=== PATIENT | male | born 1950 | race Caucasian/White ===

== ENCOUNTER 2017-02-16 18:17 | Emergency (ER) | payer OTHER ==
[~2017-02-16 18:17] MED LIST: METFORMIN HCL1000 MG PO; VITAMIN C 500500 MG PO
[2017-02-16 22:55] LABS: HEMOGLOBIN 12.7 gm/dl (14.0-17.5); RED BLOOD COUNT 4.16 M/UL (4.20-5.50); WHITE BLOOD COUNT 10.1 K/UL (4.5-11.0)
[2017-02-16 23:15] LABS: BUN/CREATININE RATIO 19 (0-10)
== END 2017-02-16 23:56 | disposition home or self-care (01) ==
LOC: ER1 18:17
PROVIDERS: Emergency Medicine
DX: H81.13 Benign paroxysmal vertigo, bilateral (principal); E11.9 Type 2 diabetes mellitus without complications; Z79.84 Long term (current) use of oral hypoglycemic drugs
CPT/HCPCS: 36415; 70450; 80048; 85025; 93005; 96361; 96374; 99284; J2405

== ENCOUNTER → 2020-09-24 | Outpatient (CLI) | payer MEDICARE, OTHER ==
[~2020-09-24] MED LIST changes: +ASPIRIN EC81 MG PO; +CRESTOR 10 MG T10 MG PO; +DOME-PASTE BANDA1 EA TOP; +GABAPENTIN300 MG PO; +GABAPENTIN400 MG PO; +HUMALOG 10100 UNITS/ SC; +HYDROCODON-ACE1 EAC2 PO; +HYSEPT473 ML EXT; +HYSEPT473 ML TOP; +INVANZ 1 GM VIAL1 GM IV; +JANUVIA 100 MG100 MG PO; +LEVOFLOXACIN500 MG PO; +LEVOFLOXACIN750 MG PO; +LOPRESSOR 25 MG25 MG PO; +MAGIC MOUTHWASH PO; +MYCOSTATIN100000 UTS PO; +NITROGLYCERIN0.4 MG SL; +NITROSTAT0.4 MG SL; +NORVASC5 MG PO; +NOVOLIN 70100 UNIT/2 SQ; +PERCOCET 5/325 T1 EA PO; +POVIDONE-IOD28.35 GM TOP; +PRILOSEC OTC20 MG PO; +VIBRAMYCIN100 MG PO; +VITAMIN D21250 MCG PO; +ZYVOX600 MG PO
[2020-09-24 17:40] LABS: HEMOGLOBIN 8.9 gm/dl (14.0-17.5); RED BLOOD COUNT 3.04 M/UL (4.20-5.50); WHITE BLOOD COUNT 7.6 K/UL (4.5-11.0)
[2020-09-24 19:59] LABS: BUN/CREATININE RATIO 28 (0-10)
== END ==
LOC: VNA 17:15
PROVIDERS: Internal Medicine
DX: E11.621 Type 2 diabetes mellitus with foot ulcer (principal); L97.509 Non-pressure chronic ulcer of other part of unspecified foot with unspecified severity; E78.5 Hyperlipidemia, unspecified; D51.9 Vitamin B12 deficiency anemia, unspecified; D52.9 Folate deficiency anemia, unspecified; R94.6 Abnormal results of thyroid function studies; S91.301A Unspecified open wound, right foot, initial encounter; E55.9 Vitamin D deficiency, unspecified; R68.89 Other general symptoms and signs; X58.XXXA Exposure to other specified factors, initial encounter
CPT/HCPCS: 80053; 80061; 82607; 82746; 84443; 85025; 87070; 87077; 87186; 87205

== ENCOUNTER 2020-09-28 01:27 | Emergency (ER) | payer MEDICARE, OTHER ==
[~2020-09-28 01:27] MED LIST changes: -ASPIRIN EC81 MG PO; -CRESTOR 10 MG T10 MG PO; -DOME-PASTE BANDA1 EA TOP; -GABAPENTIN300 MG PO; -GABAPENTIN400 MG PO; -HUMALOG 10100 UNITS/ SC; -HYSEPT473 ML TOP; -LEVOFLOXACIN500 MG PO; -LEVOFLOXACIN750 MG PO; -LOPRESSOR 25 MG25 MG PO; -NITROSTAT0.4 MG SL; -NORVASC5 MG PO; -POVIDONE-IOD28.35 GM TOP; -VITAMIN D21250 MCG PO; -ZYVOX600 MG PO
[2020-09-28 04:21] LABS: HEMOGLOBIN 9.6 gm/dl (14.0-17.5); RED BLOOD COUNT 3.3 M/UL (4.20-5.50); WHITE BLOOD COUNT 8.5 K/UL (4.5-11.0)
[2020-09-28] MEDS ORDERED: PERCOCET 5/325 T1 EA PO (06:19)
== END 2020-09-28 06:45 | disposition home or self-care (01) ==
LOC: ER1 01:27
PROVIDERS: Family Medicine
DX: E11.621 Type 2 diabetes mellitus with foot ulcer (principal); K21.9 Gastro-esophageal reflux disease without esophagitis; F17.200 Nicotine dependence, unspecified, uncomplicated; Z79.4 Long term (current) use of insulin; Z20.822 Contact with and (suspected) exposure to COVID-19
CPT/HCPCS: 71045; 73630; 73660; 80053; 85025; 85652; 86140; 87070; 87077; 87186; 87205; 99284; U0002

== ENCOUNTER 2020-10-03 18:55 | Inpatient (IN) | payer OTHER ==
[~2020-10-03] VITALS: Ht 177.8 cm; Wt 90.3 kg
[2020-10-03 22:41] LABS: HEMOGLOBIN 8.7 gm/dl (14.0-17.5); RED BLOOD COUNT 2.97 M/UL (4.20-5.50); WHITE BLOOD COUNT 7.8 K/UL (4.5-11.0)
[2020-10-03 22:55] LABS: BUN/CREATININE RATIO 19 (0-10)
[2020-10-05 04:43] LABS: HEMOGLOBIN 8.7 gm/dl (14.0-17.5)
[2020-10-05 04:48] LABS: WHITE BLOOD COUNT 10.1 K/UL (4.5-11.0)
[2020-10-05 05:55] LABS: BUN/CREATININE RATIO 27 (0-10)
[2020-10-06 05:18] LABS: HEMOGLOBIN 8.3 gm/dl (14.0-17.5); RED BLOOD COUNT 2.9 M/UL (4.20-5.50); WHITE BLOOD COUNT 9.5 K/UL (4.5-11.0)
[2020-10-06 05:55] LABS: BUN/CREATININE RATIO 19 (0-10)
[2020-10-07 04:51] LABS: HEMOGLOBIN 8.2 gm/dl (14.0-17.5); RED BLOOD COUNT 2.85 M/UL (4.20-5.50); WHITE BLOOD COUNT 9.4 K/UL (4.5-11.0)
[2020-10-07 05:08] LABS: BUN/CREATININE RATIO 21 (0-10)
[2020-10-08 04:08] LABS: HEMOGLOBIN 8.7 gm/dl (14.0-17.5); RED BLOOD COUNT 3.03 M/UL (4.20-5.50); WHITE BLOOD COUNT 9.8 K/UL (4.5-11.0)
[2020-10-08 04:32] LABS: BUN/CREATININE RATIO 19 (0-10)
[2020-10-08] MEDS ORDERED: ZYVOX600 MG PO (13:52)
[2020-10-08] MEDS ORDERED: LEVOFLOXACIN500 MG PO (13:52)
== END 2020-10-08 18:02 | disposition home or self-care (01) | DRG 41 ==
LOC: ER1 18:55 → CDU 10-04 01:24 → MED SURG 4 10-04 01:24
PROVIDERS: Internal Medicine; Physician Assistant; ADMIT Family Medicine
PROC: 0JBQ0ZZ Excision of Right Foot Subcutaneous Tissue and Fascia, Open Approach (ICD-10-PCS; principal; 2020-10-07)
PROC: 0J9Q0ZZ Drainage of Right Foot Subcutaneous Tissue and Fascia, Open Approach (ICD-10-PCS; principal; 2020-10-07)
DX: E11.42 Type 2 diabetes mellitus with diabetic polyneuropathy (principal); A52.16 Charcot's arthropathy (tabetic); L02.611 Cutaneous abscess of right foot; L03.115 Cellulitis of right lower limb; M21.6X1 Other acquired deformities of right foot; B95.62 Methicillin resistant Staphylococcus aureus infection as the cause of diseases classified elsewhere; B96.5 Pseudomonas (aeruginosa) (mallei) (pseudomallei) as the cause of diseases classified elsewhere; F15.10 Other stimulant abuse, uncomplicated; D64.9 Anemia, unspecified; Z79.899 Other long term (current) drug therapy; K21.9 Gastro-esophageal reflux disease without esophagitis; B35.1 Tinea unguium; Z20.822 Contact with and (suspected) exposure to COVID-19
CPT/HCPCS: 36415; 73630; 73718; 80053; 80202; 82043; 82962; 83036; 83605; 85025; 85027; 85610; 85652; 86140; 87040; 87070; 87077; 87186; 87205; 96365; 96366; 96367; 96368; 96372; 96375; 96376; 99284; J1650; J2270; J2543; J3370; J7070; U0002

== ENCOUNTER 2020-11-01 22:11 | Observation (INO) | payer OTHER ==
[~2020-11-01] VITALS: Ht 177.8 cm; Wt 95.3 kg
[~2020-11-01 22:11] MED LIST changes: +LEVOFLOXACIN500 MG PO; +ZYVOX600 MG PO
[2020-11-01 22:45] LABS: HEMOGLOBIN 8.4 gm/dl (14.0-17.5); RED BLOOD COUNT 2.86 M/UL (4.20-5.50)
[2020-11-02 06:34] LABS: HEMOGLOBIN 7.5 gm/dl (14.0-17.5); WHITE BLOOD COUNT 8.8 K/UL (4.5-11.0)
[2020-11-02 06:37] LABS: RED BLOOD COUNT 2.57 M/UL (4.20-5.50)
[2020-11-02 06:56] LABS: BUN/CREATININE RATIO 29 (0-10)
== END 2020-11-02 09:55 | disposition home or self-care (01) ==
LOC: ER1 22:11 → CDU 22:46 → CCU 22:46
PROVIDERS: Emergency Medicine; ADMIT Surgery
DX: T59.811A Toxic effect of smoke, accidental (unintentional), initial encounter (principal); E11.9 Type 2 diabetes mellitus without complications; Z20.822 Contact with and (suspected) exposure to COVID-19; Z98.890 Other specified postprocedural states; Z79.4 Long term (current) use of insulin; Z79.899 Other long term (current) drug therapy
CPT/HCPCS: 36415; 36600; 71045; 80048; 80053; 82600; 82805; 85007; 85025; 85027; 93005; 99285; G0378; U0002

== ENCOUNTER 2020-11-29 23:56 | Inpatient (IN) | payer OTHER ==
[~2020-11-29] VITALS: Ht 177.8 cm; Wt 95.0 kg
[2020-11-30 00:58] LABS: HEMOGLOBIN 8.4 gm/dl (14.0-17.5); RED BLOOD COUNT 2.9 M/UL (4.20-5.50); WHITE BLOOD COUNT 14.1 K/UL (4.5-11.0)
[2020-11-30 01:15] LABS: BUN/CREATININE RATIO 29 (0-10)
[2020-11-30] MEDS ORDERED: VITAMIN D21250 MCG PO (09:17)
[2020-11-30] MEDS ORDERED: GABAPENTIN300 MG PO (09:21)
[2020-12-01 04:34] LABS: HEMOGLOBIN 7.6 gm/dl (14.0-17.5); RED BLOOD COUNT 2.61 M/UL (4.20-5.50); WHITE BLOOD COUNT 12.5 K/UL (4.5-11.0)
[2020-12-01 05:02] LABS: BUN/CREATININE RATIO 20 (0-10)
[2020-12-01] MEDS ORDERED: NITROSTAT0.4 MG SL (19:52)
[2020-12-02 05:30] LABS: HEMOGLOBIN 7.8 gm/dl (14.0-17.5); RED BLOOD COUNT 2.7 M/UL (4.20-5.50); WHITE BLOOD COUNT 11.7 K/UL (4.5-11.0)
[2020-12-02 05:55] LABS: BUN/CREATININE RATIO 17 (0-10)
[2020-12-03 04:08] LABS: HEMOGLOBIN 8.1 gm/dl (14.0-17.5); RED BLOOD COUNT 2.83 M/UL (4.20-5.50); WHITE BLOOD COUNT 10.8 K/UL (4.5-11.0)
[2020-12-03 04:29] LABS: BUN/CREATININE RATIO 16 (0-10)
[2020-12-04 05:26] LABS: HEMOGLOBIN 8.2 gm/dl (14.0-17.5); RED BLOOD COUNT 2.86 M/UL (4.20-5.50); WHITE BLOOD COUNT 11.9 K/UL (4.5-11.0)
[2020-12-04 05:48] LABS: BUN/CREATININE RATIO 17 (0-10)
[2020-12-05 09:20] LABS: HEMOGLOBIN 7.4 gm/dl (14.0-17.5); RED BLOOD COUNT 2.69 M/UL (4.20-5.50)
[2020-12-05 09:52] LABS: BUN/CREATININE RATIO 18 (0-10)
[2020-12-06 03:41] LABS: RED BLOOD COUNT 2.87 M/UL (4.20-5.50); WHITE BLOOD COUNT 10.1 K/UL (4.5-11.0)
[2020-12-06 04:15] LABS: BUN/CREATININE RATIO 17 (0-10)
[2020-12-07 04:21] LABS: HEMOGLOBIN 8.5 gm/dl (14.0-17.5); RED BLOOD COUNT 3.03 M/UL (4.20-5.50); WHITE BLOOD COUNT 9.7 K/UL (4.5-11.0)
[2020-12-07 04:45] LABS: BUN/CREATININE RATIO 20 (0-10)
[2020-12-08 04:44] LABS: HEMOGLOBIN 8.5 gm/dl (14.0-17.5); RED BLOOD COUNT 3.03 M/UL (4.20-5.50); WHITE BLOOD COUNT 10.6 K/UL (4.5-11.0)
[2020-12-08 05:02] LABS: BUN/CREATININE RATIO 21 (0-10)
--- NOTE | 2020-12-09 16:39 | NUR ---
AT 1605 ON 12/09/20, BILAT FEET DRESSINGS CHANGED ORDERED.
[2020-12-10 04:24] LABS: BUN/CREATININE RATIO 26 (0-10)
--- NOTE | 2020-12-10 18:01 | NUR ---
DRESSINGS CHANGED TO BILAT FEET ORDERED AT 1730 ON 12/10/20
--- NOTE | 2020-12-11 17:15 | NUR ---
AT 1650 ON 12/11/20, DRESSING CHANGES TO BILAT FEET CHANGED PER ORDERS
--- NOTE | 2020-12-12 16:55 | NUR ---
BILAT FEET DRESSINGS CHANGED AT 1645 ON 12/12/20 ORDERED.
[2020-12-14 03:36] LABS: BUN/CREATININE RATIO 23 (0-10)
[2020-12-17 05:32] LABS: RED BLOOD COUNT 3.21 M/UL (4.20-5.50); WHITE BLOOD COUNT 9.2 K/UL (4.5-11.0)
[2020-12-17 05:50] LABS: BUN/CREATININE RATIO 25 (0-10)
[2020-12-18 04:46] LABS: HEMOGLOBIN 9.1 gm/dl (14.0-17.5); RED BLOOD COUNT 3.19 M/UL (4.20-5.50); WHITE BLOOD COUNT 8.1 K/UL (4.5-11.0)
[2020-12-18 05:10] LABS: BUN/CREATININE RATIO 26 (0-10)
--- NOTE | 2020-12-18 06:20 | NUR ---
Patient had me take off his unna boot, kerlix, pily wrap. States "too tight" and foot feels better without it. Patient absolutely refusing to allow me to place new unna boot, kerlix, pily wrap to left foot.
[2020-12-18] MEDS ORDERED: ASPIRIN EC81 MG PO (11:38)
[2020-12-18] MEDS ORDERED: POVIDONE-IOD28.35 GM TOP (11:38)
[2020-12-18] MEDS ORDERED: CRESTOR 10 MG T10 MG PO (11:38)
[2020-12-18] MEDS ORDERED: HYSEPT473 ML TOP (11:38)
[2020-12-18] MEDS ORDERED: HUMALOG 10100 UNITS/ SC (11:38)
[2020-12-18] MEDS ORDERED: DOME-PASTE BANDA1 EA TOP (11:38)
[2020-12-18] MEDS ORDERED: LOPRESSOR 25 MG25 MG PO (11:38)
[2020-12-18] MEDS ORDERED: HYDROCODON-ACE1 EAC2 PO (11:38)
== END 2020-12-18 17:22 | DRG 616 ==
LOC: ER1 23:56 → MED SURG 4 11-30 01:55 → CDU 11-30 01:55 → MED SURG 4 11-30 02:55
PROVIDERS: Emergency Medicine; Family Medicine; Internal Medicine; Physician Assistant; ADMIT Internal Medicine
PROC: 0Y6S0Z0 Detachment at Left 2nd Toe, Complete, Open Approach (ICD-10-PCS; 2020-12-03)
PROC: 0JBQ0ZZ Excision of Right Foot Subcutaneous Tissue and Fascia, Open Approach (ICD-10-PCS; 2020-12-03)
PROC: B24BZZ4 Ultrasonography of Heart with Aorta, Transesophageal (ICD-10-PCS; 2020-12-03)
PROC: 02HV33Z Insertion of Infusion Device into Superior Vena Cava, Percutaneous Approach (ICD-10-PCS; principal; 2020-12-10)
DX: E11.69 Type 2 diabetes mellitus with other specified complication (principal); I21.A1 Myocardial infarction type 2; E43 Unspecified severe protein-calorie malnutrition; M86.8X7 Other osteomyelitis, ankle and foot; E11.610 Type 2 diabetes mellitus with diabetic neuropathic arthropathy; F10.10 Alcohol abuse, uncomplicated; Z20.822 Contact with and (suspected) exposure to COVID-19; E11.40 Type 2 diabetes mellitus with diabetic neuropathy, unspecified; D63.8 Anemia in other chronic diseases classified elsewhere; I10 Essential (primary) hypertension; E78.5 Hyperlipidemia, unspecified; E11.649 Type 2 diabetes mellitus with hypoglycemia without coma; F32.9 Major depressive disorder, single episode, unspecified; E66.9 Obesity, unspecified; L03.032 Cellulitis of left toe; R53.81 Other malaise; B95.62 Methicillin resistant Staphylococcus aureus infection as the cause of diseases classified elsewhere; Z79.4 Long term (current) use of insulin; Z91.14 Patient's other noncompliance with medication regimen; Z59.0 Homelessness; Z89.431 Acquired absence of right foot; Z82.49 Family history of ischemic heart disease and other diseases of the circulatory system; Z80.9 Family history of malignant neoplasm, unspecified; Z83.3 Family history of diabetes mellitus; Z98.42 Cataract extraction status, left eye; Z98.41 Cataract extraction status, right eye; Z68.30 Body mass index [BMI] 30.0-30.9, adult
CPT/HCPCS: ECHO; 36415; 71045; 73620; 73718; 80048; 80053; 80061; 80202; 80307; 82009; 82550; 82553; 82607; 82746; 82962; 83036; 83605; 83690; 83735; 83874; 83880; 84484; 85025; 85027; 85652; 86140; 87040; 87070; 87077; 87081; 87186; 87205; 93005; 93306; 93925; 93970; 96365; 96368; 97110; 97116; 97116-GP-CQ; 97162; 97530-GP-CQ; 99285; A6212; J0692; J1650; J2270; J2543; J3370; J3475; J7030; J7070; J7120; Q4133; U0002

== ENCOUNTER → 2021-01-20 | Outpatient (CLI) | payer OTHER ==
[~2021-01-20] MED LIST changes: +ASPIRIN EC81 MG PO; +CRESTOR 10 MG T10 MG PO; +DOME-PASTE BANDA1 EA TOP; +GABAPENTIN300 MG PO; +GABAPENTIN400 MG PO; +HUMALOG 10100 UNITS/ SC; +HYSEPT473 ML TOP; +LEVOFLOXACIN750 MG PO; +LOPRESSOR 25 MG25 MG PO; +NITROSTAT0.4 MG SL; +NORVASC5 MG PO; +POVIDONE-IOD28.35 GM TOP; +VITAMIN D21250 MCG PO
== END ==
LOC: LBRF 11:57
DX: S91.301A Unspecified open wound, right foot, initial encounter (principal)
CPT/HCPCS: 87070; 87077; 87186; 87205

== ENCOUNTER 2021-02-01 10:02 | Inpatient (IN) | payer OTHER ==
[~2021-02-01] VITALS: Ht 177.8 cm; Wt 91.2 kg
[~2021-02-01 10:02] MED LIST changes: -GABAPENTIN400 MG PO; -LEVOFLOXACIN750 MG PO; -NORVASC5 MG PO
[2021-02-01 10:37] LABS: HEMOGLOBIN 11.3 gm/dl (14.0-17.5); RED BLOOD COUNT 4.06 M/UL (4.20-5.50)
[2021-02-01] MEDS ORDERED: GABAPENTIN400 MG PO (14:37)
[2021-02-01] MEDS ORDERED: LEVOFLOXACIN750 MG PO (14:38)
--- NOTE | 2021-02-01 16:05 | NUR ---
MD TEAGUE AWARE PATIENT POTASSIUM 6.0
[2021-02-02 02:49] LABS: RED BLOOD COUNT 3.43 M/UL (4.20-5.50); WHITE BLOOD COUNT 12.2 K/UL (4.5-11.0)
[2021-02-03 04:28] LABS: HEMOGLOBIN 9.8 gm/dl (14.0-17.5); RED BLOOD COUNT 3.37 M/UL (4.20-5.50)
[2021-02-03 04:46] LABS: WHITE BLOOD COUNT 9.1 K/UL (4.5-11.0)
[2021-02-03] MEDS ORDERED: NORVASC5 MG PO (13:36)
== END 2021-02-03 19:20 | disposition home or self-care (01) | DRG 557 ==
LOC: ER1 10:02 → PROG CARE 11:27 → CDU 11:27 → PROG CARE 14:31
PROVIDERS: Emergency Medicine; Internal Medicine; Internal Medicine Nephrology; Physician Assistant; ADMIT Internal Medicine
DX: M62.82 Rhabdomyolysis (principal); L89.613 Pressure ulcer of right heel, stage 3; G92 Toxic encephalopathy; E87.2 Acidosis; N17.9 Acute kidney failure, unspecified; Z20.822 Contact with and (suspected) exposure to COVID-19; F15.10 Other stimulant abuse, uncomplicated; E87.5 Hyperkalemia; E11.40 Type 2 diabetes mellitus with diabetic neuropathy, unspecified; K21.9 Gastro-esophageal reflux disease without esophagitis; F10.10 Alcohol abuse, uncomplicated; E11.65 Type 2 diabetes mellitus with hyperglycemia; I12.9 Hypertensive chronic kidney disease with stage 1 through stage 4 chronic kidney disease, or unspecified chronic kidney disease; E11.22 Type 2 diabetes mellitus with diabetic chronic kidney disease; E11.621 Type 2 diabetes mellitus with foot ulcer; E86.0 Dehydration; F17.210 Nicotine dependence, cigarettes, uncomplicated; E86.9 Volume depletion, unspecified; Z91.14 Patient's other noncompliance with medication regimen; Z79.4 Long term (current) use of insulin; Z89.422 Acquired absence of other left toe(s); Z89.421 Acquired absence of other right toe(s); Z79.82 Long term (current) use of aspirin; Z79.01 Long term (current) use of anticoagulants
CPT/HCPCS: 36415; 70450; 71045; 73620; 80048; 80053; 81001; 82009; 82140; 82550; 82553; 82570; 82962; 83605; 83690; 84156; 85025; 85027; 93005; 94640; 94664; 94760; 99285; J0360; J0610; J1644; J7030; U0002

== ENCOUNTER 2021-07-20 15:48 | Emergency (ER) | payer OTHER ==
[~2021-07-20 15:48] MED LIST changes: +GABAPENTIN400 MG PO; +LEVOFLOXACIN750 MG PO; +NORVASC5 MG PO
[2021-07-20 17:16] LABS: HEMOGLOBIN 12.4 gm/dl (14.0-17.5); RED BLOOD COUNT 4.17 M/UL (4.20-5.50); WHITE BLOOD COUNT 7.7 K/UL (4.5-11.0)
[2021-07-20 17:38] LABS: BUN/CREATININE RATIO 17 (0-10)
== END 2021-07-20 19:13 | disposition home or self-care (01) ==
LOC: ER1 15:48
PROVIDERS: Physician Assistant
DX: E11.621 Type 2 diabetes mellitus with foot ulcer (principal); L97.519 Non-pressure chronic ulcer of other part of right foot with unspecified severity; I10 Essential (primary) hypertension
CPT/HCPCS: 73630; 80053; 85025; 85652; 86140; 99283